=== PATIENT | female | born 1990 | race Caucasian/White ===

== ENCOUNTER 2022-08-30 06:20 | Day surgery (SDC) | payer MEDICAID ==
[~2022-08-30] VITALS: Ht 154.9 cm; Wt 102.1 kg
[2022-08-30 06:45] VITALS: BP 120/77
[2022-08-30] MEDS ORDERED: PROPOFOL 10 MG/ML 20ML VIAL IV ONE (07:15)
[2022-08-30] MEDS ORDERED: GLYCOPYRROLATE 1 MG/5 ML SYRINGE ONE (07:16)
[2022-08-30] MEDS ORDERED: 0.9%NACL 1000ML 1,000 ML IV ONE (09:30)
== END 2022-08-30 08:35 | disposition home or self-care (01) ==
LOC: ENDO 06:20 → DAH 06:20 → ENDO 08:35
PROVIDERS: ATTEND Surgery
DX: K21.9 Gastro-esophageal reflux disease without esophagitis (principal); Z20.822 Contact with and (suspected) exposure to COVID-19; K31.84 Gastroparesis; I10 Essential (primary) hypertension; E66.01 Morbid (severe) obesity due to excess calories; Z98.890 Other specified postprocedural states; Z82.49 Family history of ischemic heart disease and other diseases of the circulatory system; Z83.3 Family history of diabetes mellitus; Z68.41 Body mass index [BMI] 40.0-44.9, adult
CPT/HCPCS: 43235; 71045; 87635; 81025; J3490 ×2; J7030 ×2; A4620; A4215 ×2; A4223; A4222; A4221; A4663; A4606; J2704